=== PATIENT | male | born 1995 | race Caucasian/White ===

== ENCOUNTER 2019-02-28 12:27 | Emergency (ER) | payer OTHER ==
[2019-02-28 12:39] VITALS: BP 132/80
--- NOTE | 2019-02-28 12:57 | ER Document Report ---
ED Medical Screen (RME) - General Chief Complaint: Headache Stated Complaint: HEADACHE Time Seen by Provider: 02/28/19 12:51 Primary Care Provider: RODRIGUEZ DORAN MD [Primary Care Provider] - Follow up as needed Mode of Arrival: Ambulatory Information source: Patient Notes: 23-year-old male presented to ED for a severe headache. He states that started yesterday he coughed and immediately had a headache. He states that if he felt like he was going to pass out he was nauseated and felt like somebody punched him in the head. He states he coughed again today and the pain was much worse. He states he thought he was going to pass out again. Patient has a history of bronchitis anxiety depression IBS and gastritis. He states he has had a endoscopy. Smokes a half a pack a day denies alcohol or drugs. He is does not work at this time. Patient is alert and oriented respirations regular nonlabored speaking in full sentences. Patient has no acute neurological symptoms at this time except for the headache. I have greeted and performed a rapid initial assessment of this patient. A comprehensive ED assessment and evaluation of the patient, analysis of test results and completion of medical decision making process will be conducted by an additional ED providers. Dictation of this chart was performed using voice recognition software; therefore, there may be some unintended grammatical errors. TRAVEL OUTSIDE OF THE [place] IN LAST 30 DAYS: No - Related Data Allergies/Adverse Reactions: No Known Allergies Allergy (Verified 02/28/19 12:28) Past Medical History Psychiatric Medical History: Reports: Hx Depression - Immunizations Immunizations up to date: Yes Hx Diphtheria, Pertussis, Tetanus Vaccination: Yes Physical Exam - Vital signs Vitals: Temp Pulse Resp BP Pulse Ox 98.4 F 104 H 20 132/80 H 96 02/28/19 12:37 02/28/19 12:37 02/28/19 12:37 02/28/19 12:37 02/28/19 12:37 Course - Vital Signs Vital signs: Temp Pulse Resp BP Pulse Ox 98.4 F 104 H 20 132/80 H 96 02/28/19 12:37 02/28/19 12:37 02/28/19 12:37 02/28/19 12:37 02/28/19 12:37 Doctor's Discharge - Discharge Referrals: RODRIGUEZ DORAN MD [Primary Care Provider] - Follow up as needed
[2019-02-28 13:46] LABS: ABSOLUTE EOSINOPHILS # (AUTO) 0.2 10^3/uL (0.0-0.6); ABSOLUTE LYMPHOCYTES (AUTO) 1.9 10^3/uL (0.5-4.7); ABSOLUTE MONOCYTES (AUTO) 0.5 10^3/uL (0.1-1.4); ABSOLUTE NEUT (AUTO) 5.6 10^3/uL (1.7-8.2); BASOPHILS % (AUTO) 0.3 % (0-2); EOSINOPHILS % (AUTO) 1.9 % (0-6); HEMATOCRIT 48.3 % (37.9-51.0); HEMOGLOBIN 16.4 g/dL (13.5-17.0); LYMPHOCYTES % (AUTO) 23.5 % (13-45); MEAN CORPUSCULAR HEMOGLOBIN 29.8 pg (27.0-33.4); MEAN CORPUSCULAR VOLUME 88 fl (80-97); MONOCYTES % (AUTO) 6.6 % (3-13); PLATELET COUNT 293 10^3/uL (150-450); RED BLOOD COUNT 5.51 10^6/uL (4.35-5.55); SEGMENTED NEUTROPHILS % (AUTO) 67.7 % (42-78); TOTAL CELLS COUNTED % (AUTO) 100 %; WHITE BLOOD COUNT 8.2 10^3/uL (4.0-10.5)
[2019-02-28 13:54] LABS: APPEARANCE,URINE SLIGHTLY-CLOUDY; BILIRUBIN,URINE NEGATIVE (NEGATIVE); COLOR,URINE AMBER; GLUCOSE, URINE NEGATIVE (NEGATIVE); KETONES,URINE TRACE mg/dL (NEGATIVE); LEUKOCYTE ESTERASE,URINE NEGATIVE (NEGATIVE); NITRITE,URINE NEGATIVE (NEGATIVE); PROTEIN,URINE 100 mg/dL (NEGATIVE); URINE SPECIFIC GRAVITY 1.028; UROBILINOGEN,URINE NEGATIVE mg/dL (<2.0)
[2019-02-28 14:05] LABS: ALANINE AMINOTRANSFERASE 42 U/L (21-72); ALBUMIN 4.9 g/dL (3.5-5.0); ALKALINE PHOSPHATASE 71 U/L (38-126); ANION GAP 12 (5-19); ASPARTATE AMINO TRANSFERASE 30 U/L (17-59); BILIRUBIN,DIRECT 0.2 mg/dL (0.0-0.4); BILIRUBIN,TOTAL 0.9 mg/dL (0.2-1.3); BLOOD UREA NITROGEN 13 mg/dL (7-20); CALCIUM 10.2 mg/dL (8.4-10.2); CARBON DIOXIDE 24 mmol/L (22-30); CHLORIDE 106 mmol/L (98-107); GLUCOSE 92 mg/dL (75-110); POTASSIUM 4.2 mmol/L (3.6-5.0)
[2019-02-28 14:10] LABS: URINE AMPHETAMINES SCREEN NEGATIVE; URINE BARBITURATES SCREEN NEGATIVE; URINE BENZODIAZEPINES SCREEN NEGATIVE; URINE COCAINE SCREEN NEGATIVE; URINE MARIJUANA (THC) SCREEN UNCONFIRMED POSITIVE; URINE METHADONE SCREEN NEGATIVE; URINE PHENCYCLIDINE SCREEN NEGATIVE
--- NOTE | 2019-02-28 15:01 | RADIOLOGY REPORT (SQ) ---
EXAM DESCRIPTION: CT HEAD WITHOUT COMPLETED DATE/TIME: 02/28/2019 2:50 pm REASON FOR STUDY: Severe headache starting yesterday worse today COMPARISON: 08/14/2015 TECHNIQUE: Axial images acquired through the brain without intravenous contrast. Images reviewed wi th bone, brain and subdural windows. Additional sagittal and coronal reconstructions were generated. Images stored on PACS. All CT scanners at this facility use dose modulation, iterative reconstruction, and/or weight based d osing when appropriate to reduce radiation dose to as low as reasonably achievable (ALARA). [facility]: Dose Right [facility]: CareDose [facility]: Dose Right [facility]: Teradose 4D [facility]: Smart [employer] RADIATION DOSE: CT Rad equipment meets quality standard of care and radiation dose reduction techniq ues were employed. CTDIvol: 53.2 mGy. DLP: 991 mGy-cm. mGy. LIMITATIONS: None. FINDINGS: VENTRICLES: Normal size and contour. CEREBRUM: No masses. No hemorrhage. No midline shift. No evidence for acute infarction. Normal gra y/white matter differentiation. No areas of low density in the white matter. CEREBELLUM: No masses. No hemorrhage. No alteration of density. No evidence for acute infarction. EXTRAAXIAL SPACES: No fluid collections. No masses. ORBITS AND GLOBE: No intra- or extraconal masses. Normal contour of globe without masses. CALVARIUM: No fracture. PARANASAL SINUSES: No fluid or mucosal thickening. SOFT TISSUES: No mass or hematoma. OTHER: No other significant finding. IMPRESSION: No acute intracranial pathology. No noncontrast CT findings to explain headache. EVIDENCE OF ACUTE STROKE: NO. COMMENT: Quality ID # [id number]: Final reports with documentation of one or more dose reduction techniques (e.g., Automated exposure control, adjustment of the mA and/or kV according to patient size, use of iterative reconstruction technique) TECHNICAL DOCUMENTATION: JOB ID: [id number] [employer]- All Rights Reserved Reading location - IP/workstation name: [email or web address]
[2019-02-28] MEDS ORDERED: ACETAMINOPHEN 325 MG TABLET PO ONE (15:06)
== END 2019-02-28 17:20 | disposition left against medical advice (07) ==
LOC: ER 12:27
DX: R51 Headache (principal); R11.0 Nausea; R05 Cough; F17.200 Nicotine dependence, unspecified, uncomplicated; Z53.20 Procedure and treatment not carried out because of patient's decision for unspecified reasons
CPT/HCPCS: 36415; 70450; 80053; 80307; 81001; 85025; 99281

== ENCOUNTER 2019-03-31 22:24 | Emergency (ER) | payer OTHER ==
[2019-03-31 22:31] VITALS: BP 125/76
== END 2019-03-31 23:06 | disposition left against medical advice (07) ==
LOC: ER 22:24
DX: Z53.21 Procedure and treatment not carried out due to patient leaving prior to being seen by health care provider (principal)

== ENCOUNTER 2019-05-10 18:07 | Emergency (ER) | payer OTHER ==
--- NOTE | 2019-05-10 18:19 | ER Document Report ---
ED Medical Screen (RME) - General Chief Complaint: Penile Pain Stated Complaint: PENILE PAIN Time Seen by Provider: 05/10/19 18:13 Mode of Arrival: Ambulatory Information source: Patient Notes: 23-year-old male presented to ED for complaint of feeling strange intake in his belly. He states this happened he and his pain started about an hour ago he states it is frequent and now he is feeling like there is something going on with his body. Very pale at this time. He denies using any kind of substance before coming into the emergency room he states that his penis has shrunk in the last hours. He states he feels like it happens again. He states she smokes a pack a day does not drink or do any drugs. I have greeted and performed a rapid initial assessment of this patient. A comprehensive ED assessment and evaluation of the patient, analysis of test results and completion of medical decision making process will be conducted by an additional ED providers. TRAVEL OUTSIDE OF THE [place] IN LAST 30 DAYS: No - Related Data Allergies/Adverse Reactions: No Known Allergies Allergy (Verified 02/28/19 12:28) Past Medical History Renal/ Medical History: Denies: Hx Peritoneal Dialysis Psychiatric Medical History: Reports: Hx Depression - Immunizations Immunizations up to date: Yes Hx Diphtheria, Pertussis, Tetanus Vaccination: Yes Physical Exam - Vital signs Vitals: Temp Pulse Resp BP Pulse Ox 98.9 F 99 24 H 139/86 H 99 05/10/19 18:11 05/10/19 18:11 05/10/19 18:11 05/10/19 18:11 05/10/19 18:11 Course - Vital Signs Vital signs: Temp Pulse Resp BP Pulse Ox 98.9 F 99 24 H 139/86 H 99 05/10/19 18:11 05/10/19 18:11 05/10/19 18:11 05/10/19 18:11 05/10/19 18:11
[2019-05-10] MEDS ORDERED: NORMAL SALINE 1000 ML 1,000 ML IV ONE (18:20)
[2019-05-10] MEDS ORDERED: ONDANSETRON HCL INJ/PF 4 MG/2 ML SDV IV ONE (18:20)
[2019-05-10 18:55] LABS: ABSOLUTE EOSINOPHILS # (AUTO) 0.1 10^3/uL (0.0-0.6); ABSOLUTE LYMPHOCYTES (AUTO) 3.6 10^3/uL (0.5-4.7); ABSOLUTE MONOCYTES (AUTO) 0.8 10^3/uL (0.1-1.4); ABSOLUTE NEUT (AUTO) 8.9 10^3/uL (1.7-8.2); BASOPHILS % (AUTO) 0.2 % (0-2); EOSINOPHILS % (AUTO) 0.5 % (0-6); HEMATOCRIT 47.2 % (37.9-51.0); HEMOGLOBIN 16.1 g/dL (13.5-17.0); LYMPHOCYTES % (AUTO) 26.7 % (13-45); MEAN CORPUSCULAR HEMOGLOBIN 30.1 pg (27.0-33.4); MEAN CORPUSCULAR HGB CONC 34.2 g/dL (32.0-36.0); MEAN CORPUSCULAR VOLUME 88 fl (80-97); MONOCYTES % (AUTO) 6.1 % (3-13); PLATELET COUNT 332 10^3/uL (150-450); RED BLOOD COUNT 5.37 10^6/uL (4.35-5.55); RED CELL DISTRIBUTION WIDTH 12.6 % (11.5-14.0); SEGMENTED NEUTROPHILS % (AUTO) 66.5 % (42-78); TOTAL CELLS COUNTED % (AUTO) 100 %; WHITE BLOOD COUNT 13.4 10^3/uL (4.0-10.5)
[2019-05-10 19:10] LABS: ALBUMIN 5.1 g/dL (3.5-5.0); ALKALINE PHOSPHATASE 82 U/L (38-126); ANION GAP 15 (5-19); ASPARTATE AMINO TRANSFERASE 29 U/L (17-59); BILIRUBIN,DIRECT 0.2 mg/dL (0.0-0.4); BILIRUBIN,TOTAL 0.6 mg/dL (0.2-1.3); BLOOD UREA NITROGEN 15 mg/dL (7-20); CALCIUM 9.9 mg/dL (8.4-10.2); CARBON DIOXIDE 21 mmol/L (22-30); CHLORIDE 105 mmol/L (98-107); CREATINE KINASE 135 U/L (55-170); GLUCOSE 109 mg/dL (75-110); TOTAL PROTEIN 8.4 g/dL (6.3-8.2)
--- NOTE | 2019-05-10 20:00 | RADIOLOGY REPORT (SQ) ---
EXAM DESCRIPTION: U/S SCROTUM W/O DOPPLER COMPLETED DATE/TIME: 05/10/2019 7:46 pm REASON FOR STUDY: groin and penile pain COMPARISON: None. TECHNIQUE: Static and realtime ariza scale imaging of the scrotum and testes. Selected color Doppler and spectral images recorded to document blood flow. LIMITATIONS: None. FINDINGS: RIGHT: TESTICLE: Normal size 4.2 cm. Normal echotexture. Normal blood flow. No mass. EPIDIDYMIS: Normal, 11 mm. HYDROCELE OR VARICOCELE: There is a hydrocele on the right. HERNIA OR EXTRA-TESTICULAR MASS: No. OTHER: No other significant finding. LEFT: TESTICLE: Normal size 4.1 cm. Normal echotexture. Normal blood flow. No mass. EPIDIDYMIS: Prominent, measuring 26 mm. There is a 9 x 16 mm cyst in the epididymal head. HYDROCELE OR VARICOCELE: There is a hydrocele on the left. HERNIA OR EXTRA-TESTICULAR MASS: No. OTHER: Imaging in the area of the pain in the left lateral aspect of the penis shows no obvious findi ng. IMPRESSION: The left epididymis is prominent and there is an epididymal cyst. Bilateral hydroceles. No other significant findings. Correlate for epididymitis. TECHNICAL DOCUMENTATION: JOB ID: [id number] [employer]- All Rights Reserved Reading location - IP/workstation name: [email or web address]
--- NOTE | 2019-05-10 20:16 | ER Document Report ---
ED General - General Chief Complaint: Penile Pain Stated Complaint: PENILE PAIN Time Seen by Provider: 05/10/19 18:13 Mode of Arrival: Ambulatory TRAVEL OUTSIDE OF THE [place] IN LAST 30 DAYS: No - HPI Notes: This is a 23-year-old gentleman who presents today with a complaint of penile nerve pain with scrotal pain. Patient states he felt "funny inside. States it feels like his penis was drinking. He said he feels strange. He denies any nausea or vomiting. He denies any diarrhea or constipation. He denies any penile discharge. He denies any chest pain. He denies any fever or chills he denies any cardia pulmonary symptoms. Patient tells me he feels better now. - Related Data Allergies/Adverse Reactions: No Known Allergies Allergy (Verified 05/10/19 18:16) Past Medical History - General Information source: Patient - Social History Smoking Status: Current Every Day Smoker Chew tobacco use (# tins/day): No Frequency of alcohol use: None Drug Abuse: None Family History: Reviewed & Not Pertinent Patient has suicidal ideation: No Patient has homicidal ideation: No Renal/ Medical History: Denies: Hx Peritoneal Dialysis Psychiatric Medical History: Reports: Hx Depression - Immunizations Immunizations up to date: Yes Hx Diphtheria, Pertussis, Tetanus Vaccination: Yes Review of Systems - Review of Systems Cardiovascular: denies: Chest pain, Palpitations Genitourinary: denies: Burning, Dysuria, Frequency, Flank pain Male Genitourinary: See HPI, Testicular pain. denies: Erectile dysfunction, Penile discharge Neurological/Psychological: denies: Headaches -: Yes All other systems reviewed and negative Physical Exam - Vital signs Vitals: Temp Pulse Resp BP Pulse Ox 98.9 F 99 24 H 139/86 H 99 05/10/19 18:11 05/10/19 18:11 05/10/19 18:11 05/10/19 18:11 05/10/19 18:11 - General General appearance: Appears well, Alert - Respiratory Respiratory status: No respiratory distress Chest status: Nontender Breath sounds: Normal Chest palpation: Normal - Cardiovascular Rhythm: Regular Heart sounds: Normal auscultation Murmur: No - Abdominal Inspection: Normal Distension: No distension Bowel sounds: Normal Tenderness: Nontender Organomegaly: No organomegaly - Genitourinary Inspection: No: Blood at meatus Tenderness: Epididymis tender - Baseline left hemiscrotal tenderness on exam. There is pain elevation of the left testicle. Normal cremasteric reflex. - Extremities General upper extremity: Normal inspection, Nontender, Normal color, Normal ROM, Normal temperature General lower extremity: Normal inspection, Nontender, Normal color, Normal ROM. No: Frank's sign - Psychological Associated symptoms: Anxious - Patient appears anxious. Course - Re-evaluation Re-evalutation: 05/10/19 20:19 Differential diagnosis includes epididymitis versus orchitis versus hydrocele versus varicocele versus urethritis. Patient also appears to be anxious. Labs and imaging done prior to my evaluation reviewed. Ultrasound was suspicious for epididymitis. We will treat him for that. 05/10/19 22:02 Patient reevaluated. Patient is doing well. Labs and imaging reviewed and dis cussed with patient. Will cover him with Doxy. Rocephin and Zithromax given. - Vital Signs Vital signs: Temp Pulse Resp BP Pulse Ox 98.1 F 73 19 103/51 L 94 05/10/19 19:26 05/10/19 19:26 05/10/19 21:01 05/10/19 21:01 05/10/19 21:01 - Laboratory Result Diagrams: 05/10/19 18:42 05/10/19 18:42 Laboratory results interpreted by me: 05/10/19 05/10/19 05/10/19 18:42 18:42 20:40 WBC 13.4 H Absolute Neuts (auto) 8.9 H Carbon Dioxide 21 L Total Protein 8.4 H Albumin 5.1 H Urine Protein 30 H Urine Ketones 20 H Urine Urobilinogen 2.0 H Discharge - Discharge Clinical Impression: Epididymitis Condition: Good Disposition: HOME, SELF-CARE Instructions: Epididymitis ([facility]), Doxycycline ([facility]) Prescriptions: Doxycycline Monohydrate 100 mg PO BID #20 capsule Referrals: [facility] [NO LOCAL MD] - Follow up as needed
--- NOTE | 2019-05-10 20:39 | RADIOLOGY REPORT (SQ) ---
XR CHEST 1 VIEW CLINICAL STATEMENT: #1 SYNCOPE COMPARISON: 08/14/2015 FINDINGS: Cardiomediastinal silhouette is within normal limits. There is no focal lung consolidation or pleural effusion. No evidence of pulmonary edema or pneumothorax. IMPRESSION: No acute cardiopulmonary disease.
[2019-05-10 21:16] LABS: URINE AMPHETAMINES SCREEN NEGATIVE; URINE BARBITURATES SCREEN NEGATIVE; URINE BENZODIAZEPINES SCREEN NEGATIVE; URINE COCAINE SCREEN NEGATIVE; URINE MARIJUANA (THC) SCREEN UNCONFIRMED POSITIVE; URINE METHADONE SCREEN NEGATIVE; URINE PHENCYCLIDINE SCREEN NEGATIVE
[2019-05-10 21:17] LABS: APPEARANCE,URINE SLIGHTLY-CLOUDY; BILIRUBIN,URINE NEGATIVE (NEGATIVE); COLOR,URINE YELLOW; GLUCOSE, URINE NEGATIVE (NEGATIVE); KETONES,URINE 20 mg/dL (NEGATIVE); LEUKOCYTE ESTERASE,URINE NEGATIVE (NEGATIVE); NITRITE,URINE NEGATIVE (NEGATIVE); PROTEIN,URINE 30 mg/dL (NEGATIVE); URINE SPECIFIC GRAVITY 1.029
[2019-05-10] MEDS ORDERED: AZITHROMYCIN 250 MG TABLET PO ONE (21:28)
[2019-05-10] MEDS ORDERED: CEFTRIAXONE INJ 250 MG VIAL IM ONE (21:28)
[2019-05-10] MEDS ORDERED: LIDOCAINE 1% INJ-PF (10 MG/ML) 30 ML SDV ONE (21:31)
[2019-05-10] MEDS ORDERED: LIDOCAINE 1% INJ (10 MG/ML) 10 ML MDV INJ ONE (21:34)
--- NOTE | 2019-05-10 21:50 | EKG REPORT ---
SEVERITY:- BORDERLINE ECG - SINUS TACHYCARDIA PROBABLE LEFT ATRIAL ABNORMALITY BORDERLINE PROLONGED QT INTERVAL : Confirmed by: Allie Goodman MD 10-May-2019 21:48:46
[2019-05-10 22:05] VITALS: BP 97/50
[2019-05-10 23:16] LABS: CHLAM PCR NOT DETECTED (NOT DETECT)
== END 2019-05-10 22:12 | disposition home or self-care (01) ==
LOC: ER 18:07
DX: N45.1 Epididymitis (principal); N48.89 Other specified disorders of penis; F17.200 Nicotine dependence, unspecified, uncomplicated
CPT/HCPCS: 93005; 36415; 87086; 82553; 82550; 85025; 80053; 81001; 80307; 87491; 87591; 71045; 76870; 93010; J2405; J7030; J0696

== ENCOUNTER 2019-05-18 19:50 | Emergency (ER) | payer OTHER ==
[2019-05-18] MEDS ORDERED: ONDANSETRON HCL INJ/PF 4 MG/2 ML SDV IV ONE (20:06)
[2019-05-18] MEDS ORDERED: NORMAL SALINE 1000 ML 1,000 ML IV ONE (20:06)
--- NOTE | 2019-05-18 20:07 | ER Document Report ---
ED Medical Screen (RME) - General Chief Complaint: Vomiting Stated Complaint: ABDOMINAL PAIN TRAVEL OUTSIDE OF THE [place] IN LAST 30 DAYS: No - HPI Notes: 05/18/19 20:06 Patient is a 24-year-old male with a history of GERD with recent endoscopy who presents complaining of nausea and vomiting as well as epigastric abdominal pain and mild lower abdominal pain that is been present for a couple hours. Denies drug allergies. No trouble with his bowel movements. No fever. I have treated and performed a rapid initial assessment of this patient. A comprehensive ED assessment and evaluation of the patient, analysis of test results and completion of medical decision making process will be conducted by additional ED providers. PHYSICAL EXAMINATION: GENERAL: Well-appearing, well-nourished and in no acute distress. Abdomen: + Mild tenderness of the epigastrium and minimally to the lower abdomen. Limited exam in triage. - Related Data Allergies/Adverse Reactions: No Known Allergies Allergy (Verified 05/10/19 18:16) Past Medical History - Social History Frequency of alcohol use: quit 8 mnths ago Renal/ Medical History: Denies: Hx Peritoneal Dialysis Psychiatric Medical History: Reports: Hx Depression - Immunizations Immunizations up to date: Yes Hx Diphtheria, Pertussis, Tetanus Vaccination: Yes Physical Exam - Vital signs Vitals: Temp Pulse Resp BP Pulse Ox 98.1 F 93 16 126/72 H 98 05/18/19 19:58 05/18/19 19:58 05/18/19 19:58 05/18/19 19:58 05/18/19 19:58 Course - Vital Signs Vital signs: Temp Pulse Resp BP Pulse Ox 98.1 F 93 16 126/72 H 98 05/18/19 19:58 05/18/19 19:58 05/18/19 19:58 05/18/19 19:58 05/18/19 19:58
[2019-05-18 20:36] LABS: ABSOLUTE BASOPHILS # (AUTO) 0.1 10^3/uL (0.0-0.2); ABSOLUTE EOSINOPHILS # (AUTO) 0.1 10^3/uL (0.0-0.6); ABSOLUTE LYMPHOCYTES (AUTO) 2.3 10^3/uL (0.5-4.7); ABSOLUTE MONOCYTES (AUTO) 0.6 10^3/uL (0.1-1.4); ABSOLUTE NEUT (AUTO) 7.7 10^3/uL (1.7-8.2); BASOPHILS % (AUTO) 0.6 % (0-2); EOSINOPHILS % (AUTO) 0.7 % (0-6); HEMATOCRIT 48.9 % (37.9-51.0); HEMOGLOBIN 16.7 g/dL (13.5-17.0); LYMPHOCYTES % (AUTO) 21.4 % (13-45); MEAN CORPUSCULAR HEMOGLOBIN 30.2 pg (27.0-33.4); MEAN CORPUSCULAR HGB CONC 34.2 g/dL (32.0-36.0); MEAN CORPUSCULAR VOLUME 88 fl (80-97); MONOCYTES % (AUTO) 5.4 % (3-13); PLATELET COUNT 304 10^3/uL (150-450); RED BLOOD COUNT 5.53 10^6/uL (4.35-5.55); RED CELL DISTRIBUTION WIDTH 12.6 % (11.5-14.0); SEGMENTED NEUTROPHILS % (AUTO) 71.9 % (42-78); TOTAL CELLS COUNTED % (AUTO) 100 %; WHITE BLOOD COUNT 10.7 10^3/uL (4.0-10.5)
[2019-05-18 20:41] LABS: APPEARANCE,URINE CLEAR; BILIRUBIN,URINE NEGATIVE (NEGATIVE); COLOR,URINE YELLOW; GLUCOSE, URINE NEGATIVE (NEGATIVE); KETONES,URINE NEGATIVE (NEGATIVE); LEUKOCYTE ESTERASE,URINE NEGATIVE (NEGATIVE); NITRITE,URINE NEGATIVE (NEGATIVE); PROTEIN,URINE NEGATIVE (NEGATIVE); UROBILINOGEN,URINE NEGATIVE mg/dL (<2.0)
[2019-05-18 20:58] LABS: ALBUMIN 5.1 g/dL (3.5-5.0); ALKALINE PHOSPHATASE 75 U/L (38-126); ANION GAP 11 (5-19); ASPARTATE AMINO TRANSFERASE 27 U/L (17-59); BILIRUBIN,DIRECT 0.2 mg/dL (0.0-0.4); BILIRUBIN,TOTAL 0.5 mg/dL (0.2-1.3); BLOOD UREA NITROGEN 14 mg/dL (7-20); CALCIUM 10.2 mg/dL (8.4-10.2); CARBON DIOXIDE 25 mmol/L (22-30); CHLORIDE 103 mmol/L (98-107); GLUCOSE 103 mg/dL (75-110); POTASSIUM 4.3 mmol/L (3.6-5.0); TOTAL PROTEIN 8.3 g/dL (6.3-8.2)
[2019-05-18] MEDS ORDERED: FAMOTIDINE 20 MG TABLET PO ONE (22:08)
[2019-05-18] MEDS ORDERED: PROMETHAZINE HCL 25 MG TABLET PO ONE (22:08)
[2019-05-18] MEDS ORDERED: SUCRALFATE 1 GM TABLET PO ONE (22:08)
--- NOTE | 2019-05-18 22:30 | ER Document Report ---
ED GI/ - General Chief Complaint: Vomiting Stated Complaint: ABDOMINAL PAIN Time Seen by Provider: 05/18/19 21:53 Notes: Patient is a 24-year-old male that comes to the emergency department for chief complaint of vomiting, he vomited about 6-7 times a day, nonbloody, had a normal vomiting earlier today. He states he feels like he is burning in his upper abdomen. He states every time he gets up in the morning he feels nauseated and sometimes he vomits. He states that he had an endoscopy several weeks ago and he was diagnosed with gastritis but negative for everything else including H. pylori. He used to drink alcohol heavily, he stopped drinking alcohol, he states he does continue to smoke. He denies any current daily medications. He denies any recreational drugs. TRAVEL OUTSIDE OF THE [place] IN LAST 30 DAYS: No - Related Data Allergies/Adverse Reactions: No Known Allergies Allergy (Verified 05/18/19 20:44) Past Medical History - General Information source: Patient - Social History Smoking Status: Current Every Day Smoker Frequency of alcohol use: quit 8 mnths ago Lives with: Family Family History: Reviewed & Not Pertinent Patient has suicidal ideation: No Patient has homicidal ideation: No Renal/ Medical History: Denies: Hx Peritoneal Dialysis GI Medical History: Reports: Hx Gastroesophageal Reflux Disease Psychiatric Medical History: Reports: Hx Depression - Immunizations Immunizations up to date: Yes Hx Diphtheria, Pertussis, Tetanus Vaccination: Yes Review of Systems - Review of Systems Constitutional: No symptoms reported EENT: No symptoms reported Cardiovascular: No symptoms reported Respiratory: No symptoms reported Gastrointestinal: See HPI Genitourinary: No symptoms reported Male Genitourinary: No symptoms reported Musculoskeletal: No symptoms reported Skin: No symptoms reported Hematologic/Lymphatic: No symptoms reported Neurological/Psychological: No symptoms reported Physical Exam - Vital signs Vitals: Temp Pulse Resp BP Pulse Ox 98.1 F 93 16 126/72 H 98 05/18/19 19:58 05/18/19 19:58 05/18/19 19:58 05/18/19 19:58 05/18/19 19:58 - Notes Notes: GENERAL: Alert, interacts well. No acute distress. HEAD: Normocephalic, atraumatic. EYES: Pupils equal, round, and reactive to light. Extraocular movements intact. ENT: Oral mucosa moist, tongue midline. Oropharynx unremarkable. Airway patent. NECK: Full range of motion. Supple. Trachea midline. LUNGS: Clear to auscultation bilaterally, no wheezes, rales, or rhonchi. No respiratory distress. HEART: Regular rate and rhythm. No murmur ABDOMEN: Mild epigastric and left upper quadrant tenderness. No rectal quadrant or lower abdominal tenderness noted. Non-distended. Bowel sounds present in all 4 quadrants. GENITOURINARY: Deferred EXTREMITIES: Moves all 4 extremities spontaneously. No edema, normal radial and dorsalis pedis pulses bilaterally. No cyanosis. BACK: no cervical, thoracic, lumbar midline tenderness. No saddle anesthesia, normal distal neurovascular exam. Moves all extremities in full range of motion. NEUROLOGICAL: Alert and oriented x3. Normal speech. Cranial nerves II through XII grossly intact. PSYCH: Normal affect, normal mood. SKIN: Warm, dry, normal turgor. No rashes or lesions noted. Course - Re-evaluation Re-evalutation: Patient has some minimal epigastric and left upper quadrant tenderness on my exam. He is alert and well-appearing. He has no right upper quadrant tenderness. CBC, chemistry, lipase, urinalysis unremarkable. I did discuss possible ultrasound, however patient does have very specific symptoms suggesting gastritis/esophagitis along with a history of this. He is not currently being treated for this as well. Ultrasound was deferred after discussion. Patient will be placed on treatment for gastritis, discussed Lysol modifications, discussed follow-up, discussed strict return precautions. Patient states appreciation and agreement. He is tolerating p.o. without difficulty. Stable at time of discharge. - Vital Signs Vital signs: Temp Pulse Resp BP Pulse Ox 98.5 F 63 18 116/59 L 97 05/18/19 22:57 05/18/19 22:57 05/18/19 22:57 05/18/19 22:57 05/18/19 22:57 - Laboratory Result Diagrams: 05/18/19 20:15 05/18/19 20:15 Laboratory results interpreted by me: 05/18/19 05/18/19 20:15 20:15 WBC 10.7 H Total Protein 8.3 H Albumin 5.1 H Discharge - Discharge Clinical Impression: Upper abdominal pain Vomiting Qualifiers: Vomiting type: unspecified Vomiting Intractability: non-intractable Nausea presence: with nausea Qualified Code(s): R11.2 - Nausea with vomiting, unspec ified Disposition: HOME, SELF-CARE Additional Instructions: Your symptoms and examination indicate gastritis/esophagitis (inflammation of your upper gastrointestinal tract). Take Phenergan for nausea, take Carafate and Prilosec as prescribed to help treat this, you can take additional Zantac, Tums, Maalox, etc. if needed for your symptoms. You can take Tylenol for pain. Avoid NSAIDs, alcohol, smoking, caffeine, spicy food. Start with clear fluids, progress to bland diet. Follow-up with primary care for additional evaluation and treatment. Return if you worsen including uncontrolled vomiting, vomiting blood, black stools, severe pain, fever of 100.4 or greater, or any other concerning or worsening symptoms. Prescriptions: Sucralfate [Carafate 1 gm Tablet] 1 gm PO QID #20 tablet Omeprazole 40 mg PO DAILY #30 capsule. Ondansetron [Zofran Odt 4 mg Tablet] 1 - 2 tab PO Q4H PRN #15 tab.rapdis PRN Reason: For Nausea/Vomiting
[2019-05-18 23:18] VITALS: BP 116/59
== END 2019-05-18 23:18 | disposition home or self-care (01) ==
LOC: ER 19:50
DX: R10.10 Upper abdominal pain, unspecified (principal); R11.2 Nausea with vomiting, unspecified; F17.200 Nicotine dependence, unspecified, uncomplicated
CPT/HCPCS: 36415; 83690; 85025; 80053; 81001; J2405; J7030; 96361; 96374; 99284

== ENCOUNTER 2019-06-22 14:24 | Emergency (ER) | payer OTHER ==
[2019-06-22 14:39] VITALS: BP 131/72
== END 2019-06-22 16:11 | disposition left against medical advice (07) ==
LOC: ER 14:24
DX: Z53.21 Procedure and treatment not carried out due to patient leaving prior to being seen by health care provider (principal)

== ENCOUNTER 2019-06-27 20:13 | Emergency (ER) | payer OTHER ==
[2019-06-27] MEDS ORDERED: KETOROLAC TROMETHAMINE INJ/PF 30 MG/1 ML SDV IV ONE (22:16)
[2019-06-27] MEDS ORDERED: ONDANSETRON HCL INJ/PF 4 MG/2 ML SDV IV ONE (22:16)
--- NOTE | 2019-06-27 22:17 | ER Document Report ---
ED Medical Screen (RME) - General Chief Complaint: Groin Pain Stated Complaint: GROIN PAIN Time Seen by Provider: 06/27/19 22:16 Mode of Arrival: Medic Information source: Patient Notes: Patient presents complaining of scrotal pain that started yesterday. Patient states that pain radiates into the lower abdomen. Patient has had nausea and vomiting. No fever. Patient is uncertain if he has any urinary symptoms as he is distracted by the scrotal tenderness. Patient denies any change in appearance of the scrotum. I have greeted and performed a rapid initial assessment of this patient. A comprehensive ED assessment and evaluation of the patient, analysis of test results and completion of the medical decision making process will be conducted by additional ED providers. TRAVEL OUTSIDE OF THE [place] IN LAST 30 DAYS: No - Related Data Allergies/Adverse Reactions: No Known Allergies Allergy (Verified 06/27/19 21:43) Home Medications: omeprazole Past Medical History - Social History Chew tobacco use (# tins/day): No Frequency of alcohol use: None Drug Abuse: None Renal/ Medical History: Denies: Hx Peritoneal Dialysis GI Medical History: Reports: Hx Gastroesophageal Reflux Disease Psychiatric Medical History: Reports: Hx Depression - Immunizations Immunizations up to date: Yes Hx Diphtheria, Pertussis, Tetanus Vaccination: Yes Physical Exam - General General appearance: Appears well, Alert Notes: Lower pelvic tenderness
[2019-06-27 23:22] LABS: APPEARANCE,URINE CLOUDY; BILIRUBIN,URINE NEGATIVE (NEGATIVE); COLOR,URINE YELLOW; GLUCOSE, URINE NEGATIVE (NEGATIVE); KETONES,URINE NEGATIVE (NEGATIVE); PROTEIN,URINE NEGATIVE (NEGATIVE); URINE SPECIFIC GRAVITY 1.019; UROBILINOGEN,URINE NEGATIVE mg/dL (<2.0)
[2019-06-27 23:40] LABS: ABSOLUTE EOSINOPHILS # (AUTO) 0.1 10^3/uL (0.0-0.6); ABSOLUTE LYMPHOCYTES (AUTO) 2.8 10^3/uL (0.5-4.7); ABSOLUTE MONOCYTES (AUTO) 0.7 10^3/uL (0.1-1.4); BASOPHILS % (AUTO) 0.4 % (0-2); EOSINOPHILS % (AUTO) 0.4 % (0-6); LYMPHOCYTES % (AUTO) 22.2 % (13-45); MEAN CORPUSCULAR HEMOGLOBIN 29.9 pg (27.0-33.4); MEAN CORPUSCULAR VOLUME 88 fl (80-97); MONOCYTES % (AUTO) 5.7 % (3-13); PLATELET COUNT 296 10^3/uL (150-450); RED BLOOD COUNT 5.34 10^6/uL (4.35-5.55); RED CELL DISTRIBUTION WIDTH 12.8 % (11.5-14.0); SEGMENTED NEUTROPHILS % (AUTO) 71.3 % (42-78); TOTAL CELLS COUNTED % (AUTO) 100 %; WHITE BLOOD COUNT 12.7 10^3/uL (4.0-10.5)
[2019-06-28] LABS: ALKALINE PHOSPHATASE 63 U/L (38-126); ANION GAP 12 (5-19); ASPARTATE AMINO TRANSFERASE 40 U/L (17-59); BILIRUBIN,DIRECT 0.2 mg/dL (0.0-0.4); BILIRUBIN,TOTAL 0.6 mg/dL (0.2-1.3); BLOOD UREA NITROGEN 12 mg/dL (7-20); CALCIUM 10.3 mg/dL (8.4-10.2); CARBON DIOXIDE 24 mmol/L (22-30); CHLORIDE 108 mmol/L (98-107); GLUCOSE 97 mg/dL (75-110); POTASSIUM 4.8 mmol/L (3.6-5.0)
[2019-06-28 00:45] LABS: CHLAM PCR NOT DETECTED (NOT DETECT)
--- NOTE | 2019-06-28 00:46 | RADIOLOGY REPORT (SQ) ---
EXAM DESCRIPTION: [facility]: US SCROTUM CLINICAL HISTORY: 24 years Male; scrotal pain TECHNIQUE: Ruth-scale, color, and spectral Doppler images were obtained of the testes and scrotum. COMPARISON: 05/10/2019 FINDINGS: Right testicle: 4.4 x 3 x 2.4 cm. Testicular echogenicity is normal with no focal lesion. Testicular vascular flow is normal. Right epididymis: 1.4 x 1.1 x 0.8 cm. No hyperemia on color Doppler. Small hydrocele is unchanged. Left testicle: 4.6 x 2.6 x 2.3 cm. Testicular echogenicity is normal with no focal lesion. Testicular vascular flow is normal. Left epididymis: 1.8 x 1.1 x 0.6 cm. No hyperemia on Doppler. Small hydrocele is again noted. IMPRESSION: 1. No testicular mass or torsion 2. Unchanged bilateral hydroceles 3. Right epididymis is slightly larger, although there is no hyperemia. This could be an early epididymitis.
[2019-06-28] MEDS ORDERED: CIPROFLOXACIN HCL 500 MG TABLET PO ONE (00:48)
[2019-06-28] MEDS ORDERED: HYDROCODONE/ACETAMINOPHEN 5-325 MG (6 TAB/ER DISP) PO PRN (00:52)
--- NOTE | 2019-06-28 00:53 | ER Document Report ---
Entered by ADIN CÁRDENAS SCRIBE 06/28/19 0031 Acting as scribe for:VICKI JOSEPH DO ED GI/ - General Chief Complaint: Groin Pain Stated Complaint: GROIN PAIN Time Seen by Provider: 06/27/19 22:16 Mode of Arrival: Ambulatory Notes: Patient is a 24-year-old male who comes in complaining of nonspecific groin pain with possible radiation to his pelvis. He is a difficult historian. States that he is not sexually active. Hearing benign. Blood work benign. Ultrasound with possible epididymitis. Patient has had similar presentation before. Odd affect. TRAVEL OUTSIDE OF THE [place] IN LAST 30 DAYS: No - Related Data Allergies/Adverse Reactions: No Known Allergies Allergy (Verified 06/27/19 21:43) Home Medications: omeprazole Past Medical History - General Information source: Patient - Social History Smoking Status: Current Every Day Smoker Chew tobacco use (# tins/day): No Frequency of alcohol use: None Drug Abuse: None Family History: Reviewed & Not Pertinent Patient has suicidal ideation: No Patient has homicidal ideation: No - Medical History Medical History: Negative Renal/ Medical History: Denies: Hx Peritoneal Dialysis GI Medical History: Reports: Hx Gastroesophageal Reflux Disease Psychiatric Medical History: Reports: Hx Depression - Immunizations Immunizations up to date: Yes Hx Diphtheria, Pertussis, Tetanus Vaccination: Yes Review of Systems - Review of Systems Constitutional: No symptoms reported EENT: No symptoms reported Cardiovascular: No symptoms reported Respiratory: No symptoms reported Gastrointestinal: No symptoms reported Genitourinary: See HPI Male Genitourinary: See HPI Musculoskeletal: No symptoms reported Skin: No symptoms reported Hematologic/Lymphatic: No symptoms reported Neurological/Psychological: No symptoms reported Physical Exam - Vital signs Interpretation: Normal - General General appearance: Appears well, Alert - HEENT Head: Normocephalic, Atraumatic Eyes: Normal Pupils: PERRL - Respiratory Respiratory status: No respiratory distress Chest status: Nontender Breath sounds: Normal Chest palpation: Normal - Cardiovascular Rhythm: Regular Heart sounds: Normal auscultation Murmur: No - Abdominal Inspection: Normal Distension: No distension Bowel sounds: Normal Tenderness: Nontender Organomegaly: No organomegaly - Genitourinary Inspection: Normal Tenderness: Testicle tender. No: Lesions - R>L Cremasteric reflex: Normal Scrotum: No: Swelling, Redness, Hot to touch - Back Back: Normal, Nontender - Extremities General upper extremity: Normal inspection, Nontender, Normal color, Normal ROM, Normal temperature General lower extremity: Normal inspection, Nontender, Normal color, Normal ROM, Normal temperature, Normal weight bearing. No: Frank's sign - Neurological Neuro grossly intact: Yes Cognition: Normal Orientation: AAOx4 [place] Coma Scale Eye Opening: Spontaneous [place] Coma Scale Verbal: Oriented [place] Coma Scale Motor: Obeys Commands [place] Coma Scale Total: 15 Speech: Normal Motor strength normal: LUE, RUE, LLE, RLE Sensory: Normal - Psychological Associated symptoms: Normal affect, Normal mood - Skin Skin Temperature: Warm Skin Moisture: Dry Skin Color: Normal Course - Re-evaluation Re-evalutation: 06/28/19 00:51 No acute findings on blood work or urine. Ultrasound possible epididymitis. Gonorrhea and Chlamydia negative. Patient will be discharged home with Cipro Return if further concerns worsening symptoms. Stable for discharge. - Laboratory Result Diagrams: 06/27/19 23:30 06/27/19 23:30 Laboratory results interpreted by me: 06/27/19 06/27/19 23:30 23:30 WBC 12.7 H Absolute Neuts (auto) 9.0 H Chloride 108 H Calcium 10.3 H - Diagnostic Test Radiology reviewed: Reports reviewed Discharge - Discharge Clinical Impression: Scrotal pain Condition: Stable Disposition: HOME, SELF-CARE Instructions: Epididymitis ([facility]) Prescriptions: Ciprofloxacin HCl [Cipro 500 mg Tablet] 500 mg PO BID #20 tablet I personally performed the services described in the documentation, reviewed and edited the documentation which was dictated to the scribe in my presence, and it accurately records my words and actions.
[2019-06-28 01:33] VITALS: BP 129/84
== END 2019-06-28 01:38 | disposition home or self-care (01) ==
LOC: ER 20:13
DX: N50.82 Scrotal pain (principal); R10.30 Lower abdominal pain, unspecified; F17.200 Nicotine dependence, unspecified, uncomplicated
CPT/HCPCS: 99284; 96374; 96375; 36415; 85025; 80053; 81001; 87491; 87591; 76870; 93976; J1885; J2405

== ENCOUNTER 2019-07-05 20:38 | Emergency (ER) | payer OTHER ==
[2019-07-05] MEDS ORDERED: OXYCODONE-ACETAMINOPHEN 5-325 MG TABLET PO ONE (20:46)
--- NOTE | 2019-07-05 20:49 | ER Document Report ---
ED Medical Screen (RME) - General Chief Complaint: Abscess Stated Complaint: ABSCESS Time Seen by Provider: 07/05/19 20:44 Notes: Patient is a 24-year-old male presents to the emergency department with a potential rectal abscess. Patient voices he has does have a history of abscesses and is unsure of when the redness and swelling started. Patient's denying any fevers. GENERAL: Alert, interacts well. No acute distress. SKIN: Warm, dry, normal turgor. Unable to fully view rectum patient is fully closed and in triage. I have greeted and performed a rapid initial assessment of this patient. A comprehensive ED assessment and evaluation of the patient, analysis of test results and completion of the medical decision making process will be conducted by additional ED providers. I have specifically instructed the patient or family members with the patient to immediately return to any nursing staff should anything change in the patient's condition or with their chief complaint. This medical record was dictated with voice recognizing software. There may be grammatical, syntax errors that are unintended. TRAVEL OUTSIDE OF THE [place] IN LAST 30 DAYS: No - Related Data Allergies/Adverse Reactions: No Known Allergies Allergy (Verified 07/05/19 20:43) Home Medications: Cipro daily (has 2-3 days left) Past Medical History - Social History Frequency of alcohol use: None Drug Abuse: None Renal/ Medical History: Denies: Hx Peritoneal Dialysis GI Medical History: Reports: Hx Gastroesophageal Reflux Disease Psychiatric Medical History: Reports: Hx Depression - Immunizations Immunizations up to date: Yes Hx Diphtheria, Pertussis, Tetanus Vaccination: Yes Physical Exam - Vital signs Vitals: Temp Pulse BP Pulse Ox 99.5 F 91 139/71 H 97 07/05/19 20:42 07/05/19 20:42 07/05/19 20:42 07/05/19 20:42 Course - Vital Signs Vital signs: Temp Pulse Resp BP Pulse Ox 99.5 F 91 139/71 H 97 07/05/19 20:42 07/05/19 20:42 07/05/19 20:42 07/05/19 20:42
--- NOTE | 2019-07-05 22:32 | ER Document Report ---
ED Skin Rash/Insect Bite/Abscs - General Chief Complaint: Abscess Stated Complaint: ABSCESS Time Seen by Provider: 07/05/19 20:44 Notes: Patient is a 24-year-old male who presents emergency department with a chief complaint of rectal pain. Patient reports that he did notice some drainage from the rectal area 3 days ago. Patient reports this was a mixture of blood and pus. Patient reports since then he has had no drainage but does report significant tenderness, redness to the area. Patient denies a history of abscess or MRSA. Patient denies history of diabetes. TRAVEL OUTSIDE OF THE [place] IN LAST 30 DAYS: No - Related Data Allergies/Adverse Reactions: No Known Allergies Allergy (Verified 07/05/19 20:43) Home Medications: Cipro daily (has 2-3 days left) Past Medical History - General Information source: Patient - Social History Smoking Status: Current Every Day Smoker Frequency of alcohol use: None Drug Abuse: None Lives with: Family Family History: Reviewed & Not Pertinent Patient has suicidal ideation: No Patient has homicidal ideation: No - Past Medical History Cardiac Medical History: Reports: None Pulmonary Medical History: Reports: None EENT Medical History: Reports: None Neurological Medical History: Reports: None Endocrine Medical History: Reports: None Renal/ Medical History: Reports: None. Denies: Hx Peritoneal Dialysis Malignancy Medical History: Reports None GI Medical History: Reports: Hx Gastroesophageal Reflux Disease Musculoskeletal Medical History: Reports None Skin Medical History: Reports None Psychiatric Medical History: Reports: Hx Depression Traumatic Medical History: Reports: None Infectious Medical History: Reports: None Surgical Hx: Negative - Immunizations Immunizations up to date: Yes Hx Diphtheria, Pertussis, Tetanus Vaccination: Yes Review of Systems - Review of Systems Constitutional: No symptoms reported EENT: No symptoms reported Cardiovascular: No symptoms reported Respiratory: No symptoms reported Gastrointestinal: See HPI Genitourinary: No symptoms reported Male Genitourinary: No symptoms reported Musculoskeletal: No symptoms reported Skin: No symptoms reported Hematologic/Lymphatic: No symptoms reported Neurological/Psychological: No symptoms reported Physical Exam - Vital signs Vitals: Temp Pulse BP Pulse Ox 99.5 F 91 139/71 H 97 07/05/19 20:42 07/05/19 20:42 07/05/19 20:42 07/05/19 20:42 - Notes Notes: GENERAL: Well-appearing, well-nourished and in no acute distress. HEAD: Atraumatic, normocephalic. EYES: Pupils equal round and reactive to light, extraocular movements intact, sclera anicteric, conjunctiva are normal. ENT: Nares patent, oropharynx clear without exudates. Moist mucous membranes. NECK: Normal range of motion, supple without lymphadenopathy or JVD. LUNGS: Breath sounds clear to auscultation bilaterally and equal. No wheezes rales or rhonchi. HEART: Regular rate and rhythm without murmurs, rubs or gallops. ABDOMEN: Soft, nontender, normoactive bowel sounds. No guarding, no rebound. No masses appreciated. BACK: No cervical, thoracic, lumbar midline tenderness. No saddle anesthesia, normal distal neurovascular exam. GENITOURINARY: Deferred. EXTREMITIES: Normal range of motion, no pitting or edema. No clubbing or cyanosis. NEUROLOGICAL: Cranial nerves II through XII grossly intact. Normal speech, normal gait. PSYCH: Normal mood, normal affect. SKIN: Warm, Dry, normal turgor, 4x5cm area of erythema noted within the lower buttocks on the right side. No drainage. Fluctuant and tender to touch. Course - Re-evaluation Re-evalutation: 07/06/19 00:[address] Mckoy to the bedside for patient evaluation. He does believe that this can be performed in the emergency department does not require a surgical consult as it is not extremely close to the anus. After the procedure I did explain to the patient that the wound will continue to drain over the next few days but he does need to come back for a recheck to have the packing removed and the area evaluated. Did give the patient strict return precautions in the meantime. We will place the patient on oral antibiotics and give him pain medication. Patient to use warm compresses. - Vital Signs Vital signs: Temp Pulse Resp BP Pulse Ox 99.5 F 91 139/71 H 97 07/05/19 20:42 07/05/19 20:42 07/05/19 20:42 07/05/19 20:42 Procedures - Incision and Drainage Right Lower Buttock Time completed: 23:45 Type: Simple Anesthetic type: 2% Lidocaine mL's of anesthetic: 8 Blade size: 11 I&D procedure: Shurclens applied, Iodoform packing placed Incision Method: Incision made by scalpel Notes: 07/06/19 00:09 1 cm incision made in the middle of the abscess. There was a large amount of bloody purulent drainage. The wound was irrigated with saline and explored to remove any additional pockets of infection. The wound was packed with iodoform. Discharge - Discharge Clinical Impression: Abscess Condition: Stable Disposition: HOME, SELF-CARE Additional Instructions: Today you are seen in the emergency department for an abscess. The abscess did require a numbing agent to be sized. I have packed this to keep the wound open so it will drain. You do need to return to the emergency department in 2 days for a wound recheck and to have the packing removed. You will be placed on oral antibiotics. Complete the oral antibiotics as prescribed. Please use warm compresses to the site to aid in drainage. Please return to the emergency department sooner if you develop a fever, severe pain that is not controlled, worsening swelling or redness. We did attempt to have a bowel movement this can be significantly painful due to the location of the abscess. You may use a stool softener such as Colace 100 mg daily. You can buy this [id number]. Please continue to stay hydrated and push fluids. Eat foods that are high in fiber. *You have been given a prescription for [place] which is a narcotic. Do not drive or operate heavy machinery while on this medication. You can also incorporate ibuprofen. ABSCESS: You have an abscess (boil). This a pus-forming infection, usually due to staph. Some boils may be left to drain on their own, but most require lancing. From the time the tender lump first appears, it may be three or four days before the abscess is ready to kamran. Local heat and rest help at this stage of treatment. An antibiotic may prevent spread of the infection. Once the abscess is opened, packing may be placed into it. This is done so pus is not sealed inside by premature closure of the cavity. The packing will be removed at your follow-up visit or you may be advised to remove it yourself at home. Sometimes this packing must be replaced a few times during healing. The wound will heal with surprisingly little scar. Depending on the size and location of an abscess, healing can take one to four weeks. You may shower and wash the area around the incision site two or three times a day. Antibiotics may be prescribed, but are usually not necessary after an abscess has been drained. If you develop fever, chills, worsening pain, or increasing swelling in the area, call the doctor or return immediately. POST INCISION AND DRAINAGE: You have had an incision made to allow drainage of an abscess. The incision must remain open so that pus and debris can drain from the wound. If the abscess cavity is large, packing is placed. This keeps the tissues from collapsing and trapping pus inside, while the body shrinks the cavity. The packing may need to be replaced every day or two. The physician will instruct you on the packing. Keep a bulky dressing over the area. Replace it if it becomes saturated with blood or pus. Do not disturb the packing (if present). You may shower and cleanse the area with gentle soap and warm water two or three times a day. Local warmth may be soothing, and may promote faster healing. Return if you develop high fever or chills, or if you note spreading redness, increasing swelling, or increasing tenderness. ORAL NARCOTIC MEDICATION: You have been given a prescription for pain control. This medication is a narcotic. It's best taken with food, as nausea can result if taken on an empty stomach. Don't operate machinery or drive within six hours of taking this medication. Do not combine this medicine with alcohol, or with any medication which can cause sedation (such as cold tablets or sleeping pills) unless you get permission from the physician. Narcotics tend to cause constipation. If possible, drink plenty of fluids and eat a diet high in fiber and fruits. TRIMETHOPRIM-SULFA: You have been given a prescription for trimethoprim-sulfa (TMS, Septra, Bactrim). This is a combination antibiotic of the sulfa class, often used for urinary tract infections, middle ear infections, bronchitis, shigella intestinal infection, and Pneumocystis pneumonia. TMS is usually well-tolerated. Occasional side effects include nausea and decreased appetite. Septra is not recommended for infants less than two months of age. Do not take this medication if you have experienced severe side effects or allergy to sulfa medicine. You should stop this medicine at once and contact your physician if you develop any rash, joint pain, shortness of breath, bruising, or jaundice (yellow color in the skin), or if you develop any other new or unusual symptoms. FOLLOW-UP CARE: Most simple abscesses will not require a follow up visit. If you had packing placed in the abscess, remove it as instructed by the physician. If you have been referred to a physician for follow-up care, call the physicians office for an appointment as you were instructed or within the next two days. If you experience worsening or a significant change in your symptoms, return to the Emergency Department at any time for re-evaluation. Prescriptions: Sulfamethoxazole/Trimethoprim [Bactrim Ds Tablet] 1 each PO BID 7 Days #14 tablet Forms: Return to Work
[2019-07-05] MEDS ORDERED: LIDOCAINE 2% INJ (20 MG/ML) 20 ML MDV INJ ONE (22:57)
[2019-07-05] MEDS ORDERED: HYDROCODONE/ACETAMINOPHEN 5-325 MG (6 TAB/ER DISP) PO PRN (22:59)
[2019-07-05] MEDS ORDERED: SULFAMETHOXAZOLE/TRIMETHOPRIM 800-160 MG TABLET PO ONE (22:59)
[2019-07-06] MEDS ORDERED: SULFAMETHOXAZOLE/TRIMETHOPRIM 800-160 MG TABLET PO ONE (01:01)
[2019-07-06 01:20] VITALS: BP 135/66
== END 2019-07-06 01:17 | disposition home or self-care (01) ==
LOC: ER 20:38
PROC: 0H98XZZ Drainage of Buttock Skin, External Approach (ICD-10-PCS; principal; 2019-07-05)
DX: K61.1 Rectal abscess (principal); F17.200 Nicotine dependence, unspecified, uncomplicated
CPT/HCPCS: 99283; 10060; A6266; J3490

== ENCOUNTER 2019-07-08 15:03 | Emergency (ER) | payer OTHER ==
[2019-07-08] MEDS ORDERED: ONDANSETRON HCL INJ/PF 4 MG/2 ML SDV IM ONE (15:08)
[2019-07-08] MEDS ORDERED: ONDANSETRON HCL INJ/PF 4 MG/2 ML SDV ONE (15:08)
--- NOTE | 2019-07-08 15:08 | ER Document Report ---
ED Medical Screen (RME) - General Chief Complaint: Penile Problem Stated Complaint: GROIN PAIN/GENITAL PAIN Time Seen by Provider: 07/08/19 15:07 Mode of Arrival: Ambulatory Information source: Patient Notes: 24-year-old male presented to ED for complaint of penile and scrotal pain as well as lower abdominal pain. He is actively vomiting in the pit area. He states he has been having pain off and on for the last 2 months. He states he has had an ultrasound of the scrotum which he thinks it was in June. He states today is the worst it is been. Patient is alert oriented respirations regular nonlabored. I have greeted and performed a rapid initial assessment of this patient. A comprehensive ED assessment and evaluation of the patient, analysis of test results and completion of medical decision making process will be conducted by an additional ED providers. TRAVEL OUTSIDE OF THE [place] IN LAST 30 DAYS: No - Related Data Smoking: Cigarettes - 1/2 ppd Frequency of alcohol use: None Drug Abuse: None Allergies/Adverse Reactions: No Known Allergies Allergy (Verified 07/05/19 20:43) Past Medical History Renal/ Medical History: Denies: Hx Peritoneal Dialysis GI Medical History: Reports: Hx Gastroesophageal Reflux Disease Psychiatric Medical History: Reports: Hx Depression - Immunizations Immunizations up to date: Yes Hx Diphtheria, Pertussis, Tetanus Vaccination: Yes
[2019-07-08] MEDS ORDERED: ONDANSETRON HCL INJ/PF 4 MG/2 ML SDV IV ONE ×2 (15:17→16:54)
[2019-07-08] MEDS ORDERED: KETOROLAC TROMETHAMINE INJ/PF 30 MG/1 ML SDV IV ONE ×2 (15:55→16:54)
[2019-07-08 16:13] LABS: ABSOLUTE EOSINOPHILS # (AUTO) 0.1 10^3/uL (0.0-0.6); ABSOLUTE LYMPHOCYTES (AUTO) 2.4 10^3/uL (0.5-4.7); ABSOLUTE MONOCYTES (AUTO) 0.8 10^3/uL (0.1-1.4); ABSOLUTE NEUT (AUTO) 6.1 10^3/uL (1.7-8.2); BASOPHILS % (AUTO) 0.4 % (0-2); EOSINOPHILS % (AUTO) 0.9 % (0-6); HEMATOCRIT 45.2 % (37.9-51.0); HEMOGLOBIN 15.6 g/dL (13.5-17.0); LYMPHOCYTES % (AUTO) 25.8 % (13-45); MEAN CORPUSCULAR HEMOGLOBIN 29.8 pg (27.0-33.4); MEAN CORPUSCULAR HGB CONC 34.4 g/dL (32.0-36.0); MEAN CORPUSCULAR VOLUME 87 fl (80-97); MONOCYTES % (AUTO) 8.4 % (3-13); PLATELET COUNT 357 10^3/uL (150-450); RED BLOOD COUNT 5.22 10^6/uL (4.35-5.55); RED CELL DISTRIBUTION WIDTH 12.5 % (11.5-14.0); SEGMENTED NEUTROPHILS % (AUTO) 64.5 % (42-78); TOTAL CELLS COUNTED % (AUTO) 100 %; WHITE BLOOD COUNT 9.4 10^3/uL (4.0-10.5)
[2019-07-08] MEDS: NORMAL SALINE 1000 ML 1,000 ML IV PRN ×2 (16:16→17:11)
--- NOTE | 2019-07-08 16:26 | RADIOLOGY REPORT (SQ) ---
EXAM DESCRIPTION: CT ABD/PELVIS NO ORAL OR IV COMPLETED DATE/TIME: 07/08/2019 4:12 pm REASON FOR STUDY: eval for renal stone COMPARISON: CT urolithiasis 08/24/2015 TECHNIQUE: CT scan of the abdomen and pelvis performed without intravenous or oral contrast. Images reviewed with lung, soft tissue, and bone windows. Reconstructed coronal and sagittal MPR images revi ewed. All images stored on PACS. All CT scanners at this facility use dose modulation, iterative reconstruction, and/or weight based d osing when appropriate to reduce radiation dose to as low as reasonably achievable (ALARA). [facility]: Dose Right [facility]: CareDose [facility]: Dose Right [facility]: Teradose 4D [facility]: Positron RADIATION DOSE: CT Rad equipment meets quality standard of care and radiation dose reduction techniq ues were employed. CTDIvol: 7.2 mGy. DLP: 387 mGy-cm.mGy. LIMITATIONS: None. FINDINGS: LOWER CHEST: No significant findings. No nodules or infiltrates. NON-CONTRASTED LIVER, SPLEEN, ADRENALS: Evaluation limited by lack of IV contrast. No identified sign ificant masses. PANCREAS: No masses. No peripancreatic inflammatory changes. GALLBLADDER: No identified stones by CT criteria. No inflammatory changes to suggest cholecystitis. RIGHT KIDNEY AND URETER: No suspicious masses. Assessment limited by lack of IV contrast. No signif icant calcifications. No hydronephrosis or hydroureter. LEFT KIDNEY AND URETER: No suspicious masses. Assessment limited by lack of IV contrast. No signifi cant calcifications. No hydronephrosis or hydroureter. AORTA AND RETROPERITONEUM: No aneurysm. No retroperitoneal masses or adenopathy. BOWEL AND PERITONEAL CAVITY: No obvious masses or inflammatory changes. No free fluid. APPENDIX: Normal. PELVIS, BLADDER, AND ABDOMINAL WALL:No abnormal masses. No free fluid. Bladder normal. BONES: No significant findings. OTHER: No other significant finding. IMPRESSION: NO SIGNIFICANT OR ACUTE PROCESS IN THE ABDOMEN OR PELVIS. COMMENT: Quality ID # [id number]: Final reports with documentation of one or more dose reduction techniques (e.g., Automated exposure control, adjustment of the mA and/or kV according to patient size, use of iterative reconstruction technique) TECHNICAL DOCUMENTATION: JOB ID: [id number]- All Rights Reserved Reading location - IP[facility]workstation name: [email or web address]
[2019-07-08 16:44] LABS: APPEARANCE,URINE CLEAR; BILIRUBIN,URINE NEGATIVE (NEGATIVE); COLOR,URINE YELLOW; GLUCOSE, URINE NEGATIVE (NEGATIVE); KETONES,URINE NEGATIVE (NEGATIVE); PROTEIN,URINE 30 mg/dL (NEGATIVE); URINE SPECIFIC GRAVITY 1.026; UROBILINOGEN,URINE NEGATIVE mg/dL (<2.0)
[2019-07-08 16:52] LABS: URINE AMPHETAMINES SCREEN NEGATIVE; URINE BARBITURATES SCREEN NEGATIVE; URINE BENZODIAZEPINES SCREEN NEGATIVE; URINE COCAINE SCREEN NEGATIVE; URINE MARIJUANA (THC) SCREEN UNCONFIRMED POSITIVE; URINE METHADONE SCREEN NEGATIVE; URINE PHENCYCLIDINE SCREEN NEGATIVE
[2019-07-08 17:15] LABS: ALBUMIN 4.9 g/dL (3.5-5.0); ALKALINE PHOSPHATASE 76 U/L (38-126); ANION GAP 12 (5-19); ASPARTATE AMINO TRANSFERASE 25 U/L (17-59); BILIRUBIN,DIRECT 0.1 mg/dL (0.0-0.4); BILIRUBIN,TOTAL 0.4 mg/dL (0.2-1.3); BLOOD UREA NITROGEN 17 mg/dL (7-20); CALCIUM 10.3 mg/dL (8.4-10.2); CARBON DIOXIDE 25 mmol/L (22-30); CHLORIDE 104 mmol/L (98-107); GLUCOSE 94 mg/dL (75-110); POTASSIUM 4.2 mmol/L (3.6-5.0); TOTAL PROTEIN 8.2 g/dL (6.3-8.2)
--- NOTE | 2019-07-08 19:14 | ER Document Report ---
ED GI/ - General Chief Complaint: Groin Pain Stated Complaint: GROIN PAIN/GENITAL PAIN Time Seen by Provider: 07/08/19 15:07 Primary Care Provider: REBECCA BENEDICT MD [NO LOCAL MD] - Follow up as needed Mode of Arrival: Ambulatory Notes: 24-year-old male presented to ED for complaint of penile and scrotal pain as well as lower abdominal pain. He is actively vomiting in the pit area. He sta hermelinda he has been having pain off and on for the last 2 months. He states he has had an ultrasound of the scrotum which he thinks it was in June. He states today is the worst it is been. Patient denies any fevers or diarrhea. Denies any penile discharge or dysuria. TRAVEL OUTSIDE OF THE [place] IN LAST 30 DAYS: No - Related Data Allergies/Adverse Reactions: No Known Allergies Allergy (Verified 07/05/19 20:43) Past Medical History - General Information source: Patient - Social History Smoking Status: Current Every Day Smoker Frequency of alcohol use: None Drug Abuse: None Family History: Reviewed & Not Pertinent Patient has suicidal ideation: No Patient has homicidal ideation: No Renal/ Medical History: Denies: Hx Peritoneal Dialysis GI Medical History: Reports: Hx Gastroesophageal Reflux Disease Psychiatric Medical History: Reports: Hx Depression - Immunizations Immunizations up to date: Yes Hx Diphtheria, Pertussis, Tetanus Vaccination: Yes Review of Systems - Review of Systems Constitutional: No symptoms reported EENT: No symptoms reported Cardiovascular: No symptoms reported Respiratory: No symptoms reported Gastrointestinal: See HPI Genitourinary: No symptoms reported Male Genitourinary: See HPI Musculoskeletal: No symptoms reported Skin: No symptoms reported Hematologic/Lymphatic: No symptoms reported Neurological/Psychological: No symptoms reported Physical Exam - Vital signs Vitals: Temp Pulse Resp BP Pulse Ox 98.3 F 78 14 127/71 H 98 07/08/19 19:32 07/08/19 19:32 07/08/19 19:32 07/08/19 19:32 07/08/19 19:32 - Notes Notes: PHYSICAL EXAMINATION: GENERAL: Well-appearing, well-nourished and in no acute distress. HEAD: Atraumatic, normocephalic. EYES: Pupils equal round and reactive to light, extraocular movements intact, sclera anicteric, conjunctiva are normal. ENT: Nares patent, oropharynx clear without exudates. Moist mucous membranes. NECK: Normal range of motion, supple without lymphadenopathy LUNGS: Breath sounds clear to auscultation bilaterally and equal. No wheezes rales or rhonchi. HEART: Regular rate and rhythm without murmurs ABDOMEN: Soft, mildly tender, nondistended abdomen. No guarding, no rebound. No masses appreciated. Genitourinary: Mild erythema noted over the shaft of the penis in the head of the penis, no rashes or lesions noted, no obvious scrotal swelling or edema or erythema. Musculoskeletal: Normal range of motion, no pitting or edema. No cyanosis. NEUROLOGICAL: Cranial nerves grossly intact. Normal speech, normal gait. Normal sensory, motor exams PSYCH: Normal mood, normal affect. SKIN: Warm, Dry, normal turgor, no rashes or lesions noted. Course - Re-evaluation Re-evalutation: Laboratory 07/08/19 07/08/19 07/08/19 15:56 15:56 15:58 WBC 9.4 RBC 5.22 Hgb 15.6 Hct 45.2 MCV 87 MCH 29.8 MCHC 34.4 RDW 12.5 Plt Count 357 Lymph % (Auto) 25.8 Garland % (Auto) 8.4 Eos % (Auto) 0.9 Baso % (Auto) 0.4 Absolute Neuts (auto) 6.1 Absolute Lymphs (auto) 2.4 Absolute Monos (auto) 0.8 Absolute Eos (auto) 0.1 Absolute Basos (auto) 0.0 Seg Neutrophils % 64.5 Sodium Cancelled Potassium Cancelled Chloride Cancelled Carbon Dioxide Cancelled Anion Gap Cancelled BUN Cancelled Creatinine Cancelled Est GFR ( Amer) Cancelled Est GFR (Non-Af Amer) Cancelled Est GFR (MDRD) Non-Af Cancelled Glucose Cancelled Calcium Cancelled Total Bilirubin Cancelled Direct Bilirubin Cancelled Neonat Total Bilirubin Cancelled Neonat Direct Bilirubin Cancelled Neonat Indirect Bili Cancelled AST Cancelled ALT Cancelled Alkaline Phosphatase Cancelled Total Protein Cancelled Albumin Cancelled Lipase Cancelled EGFR Cancelled Urine Color YELLOW Urine Appearance CLEAR Urine pH 7.0 Ur Specific [place] 1.026 Urine Protein 30 H Urine Glucose (UA) NEGATIVE Urine Ketones NEGATIVE Urine Blood NEGATIVE Urine Nitrite (Reflex) NEGATIVE Urine Bilirubin NEGATIVE Urine Urobilinogen NEGATIVE Leukocyte Esterase Rfl NEGATIVE Urine RBC (Auto) 5 Urine WBC (Reflex) 1 Urine Mucus (Auto) OCC Urine Ascorbic Acid NEGATIVE Urine Opiates Screen Urine Methadone Screen Ur Barbiturates Screen Ur Phencyclidine Scrn Ur Amphetamines Screen U Benzodiazepines Scrn Urine Cocaine Screen U Marijuana (THC) Screen 07/08/19 07/08/19 15:58 16:45 WBC RBC Hgb Hct MCV MCH MCHC RDW Plt Count Lymph % (Auto) Gar[place] % (Auto) Eos % (Auto) Baso % (Auto) Absolute Neuts (auto) Absolute Lymphs (auto) Absolute Monos (auto) Absolute Eos (auto) Absolute Basos (auto) Seg Neutrophils % Sodium 141.4 Potassium 4.2 Chloride 104 Carbon Dioxide 25 Anion Gap 12 BUN 17 Creatinine 1.06 Est GFR ( Amer) > 60 Est GFR (Non-Af Amer) Est GFR (MDRD) Non-Af > 60 Glucose 94 Calcium 10.3 H Total Bilirubin 0.4 Direct Bilirubin 0.1 Neonat Total Bilirubin Not Reportable Neonat Direct Bilirubin Not Reportable Neonat Indirect Bili Not Reportable AST 25 ALT 29 Alkaline Phosphatase 76 Total Protein 8.2 Albumin 4.9 Lipase 46.1 EGFR Urine Color Urine Appearance Urine pH Ur Specific [place] Urine Protein Urine Glucose (UA) Urine Ketones Urine Blood Urine Nitrite (Reflex) Urine Bilirubin Urine Urobilinogen Leukocyte Esterase Rfl Urine RBC (Auto) Urine WBC (Reflex) Urine Mucus (Auto) Urine Ascorbic Acid Urine Opiates Screen UNCONFIRMED POSITIVE Urine Methadone Screen NEGATIVE Ur Barbiturates Screen NEGATIVE Ur Phencyclidine Scrn NEGATIVE Ur Amphetamines Screen NEGATIVE U Benzodiazepines Scrn NEGATIVE Urine Cocaine Screen NEGATIVE U Marijuana (THC) Screen UNCONFIRMED POSITIVE Abdomen/Pelvis CT 07/08/19 15:26 IMPRESSION: NO SIGNIFICANT OR ACUTE PROCESS IN THE ABDOMEN OR PELVIS. - Vital Signs Vital signs: Temp Pulse Resp BP Pulse Ox 98.3 F 78 14 127/71 H 98 07/08/19 19:32 07/08/19 19:32 07/08/19 19:32 07/08/19 19:32 07/08/19 19:32 - Laboratory Result Diagrams: 07/08/19 15:56 07/08/19 16:45 Laboratory results interpreted by me: 07/08/19 07/08/19 15:58 16:45 Calcium 10.3 H Urine Protein 30 H Discharge - Discharge Clinical Impression: Lower abdominal pain Groin pain Qualifiers: Laterality: right Qualified Code(s): R10.31 - Right lower quadrant pain Condition: Stable Disposition: HOME, SELF-CARE Additional Instructions: You were seen in the emergency department for lower abdominal pain and groin pain. Fortunately your work-up was unremarkable today. I will start you on some doxycycline until you see urology. Please call them tomorrow to schedule appointment, let them know you have been seen in the emergency department multiple times for groin pain, penile pain and lower abdominal pain and have normal work-ups. Take the pain and nausea medication as prescribed. Take ibuprofen 600 mg every 6 hours as well. Prescriptions: Doxycycline Hyclate 100 mg PO BID #14 capsule Hydrocodone/Acetaminophen [Obion 5-325 mg Tablet] 1 tab PO Q4H #10 tablet Ondansetron [Zofran Odt 4 mg Tablet] 1 - 2 tab PO Q4H PRN #15 tab.rapdis PRN Reason: For Nausea/Vomiting Referrals: REBECCA BENEDICT MD [NO LOCAL MD] - Follow up as needed
[2019-07-08 19:33] VITALS: BP 127/71
== END 2019-07-08 19:33 | disposition home or self-care (01) ==
LOC: ER 15:03
DX: R10.31 Right lower quadrant pain (principal); N48.89 Other specified disorders of penis; N50.82 Scrotal pain; F17.200 Nicotine dependence, unspecified, uncomplicated
CPT/HCPCS: 96376; 99284; 96372; 96361; 96374; 96375; 36415; 83690; 85025; 80053; 81001; 80307; 74176; J1885; J2405; J7030

== ENCOUNTER 2019-12-13 16:46 | Emergency (ER) | payer SELFPAY ==
[2019-12-13 16:52] VITALS: BP 128/85
--- NOTE | 2019-12-13 17:03 | ER Document Report ---
HPI - HPI Time Seen by Provider: 12/13/19 16:58 Notes: 24-year-old male presents emergency room with complaints of lower left dental pain that started approximately 1 week ago. Patient does smoke half pack a day for the last 8 years or so. Unable to get into a dentist. Noted some purulent drainage from his left floor molar. Pain is 3 out of 10, achy throbbing. Has not tried any [id number] ibuprofen or Tylenol for pain control. Eating and drink without any issues. Denies fevers, chills, chest pain,palpitations, shortness of breath, dyspnea, nausea, vomiting, diarrhea, abdominal pain, hematuria,blurred vision, double vision, loss of vision, speech changes, LH, dizziness, syncope, headaches, wheezing, ST, URI, neck pain, weakness, bowel or bladder dysfunction, saddle anesthesia, numbness or tingling in bilateral upper or lower extremities equally, muscle paralysis, weakness in bilateral upper or lower extremities equally or rash. - REPRODUCTIVE Reproductive: DENIES: : Past Medical History - General Information source: Patient - Social History Smoking Status: Current Every Day Smoker Family History: Reviewed & Not Pertinent Renal/ Medical History: Denies: Hx Peritoneal Dialysis GI Medical History: Reports: Hx Gastroesophageal Reflux Disease Psychiatric Medical History: Reports: Hx Depression - Immunizations Immunizations up to date: Yes Hx Diphtheria, Pertussis, Tetanus Vaccination: Yes Vertical Provider Document - CONSTITUTIONAL Agree With Documented VS: Yes Exam Limitations: No Limitations General Appearance: WD/WN Notes: PHYSICAL EXAMINATION:reviewed vital signs by RN GENERAL: Well-appearing, well-nourished and in no acute distress. HEAD: Atraumatic, normocephalic. EYES: Pupils equal round and reactive to light, extraocular movements intact, sclera anicteric, conjunctiva are normal. ENT: Nares patent, oropharynx clear without exudates. Moist mucous membranes. . #17 gingiva with swelling, erythema and induration. No drainage or open wounds. No fluctuance. No facial swelling. Poor oral dentition, left lower jaw with mild dental caries, no definite swelling or effusion. no trismus noted. Uvula is midline NECK: Normal range of motion, supple without lymphadenopathy LUNGS: Breath sounds clear to auscultation bilaterally and equal. No wheezes rales or rhonchi. HEART: Regular rate and rhythm without murmurs ABDOMEN: Soft, nontender, nondistended abdomen. No guarding, no rebound. No masses appreciated. Musculoskeletal: Normal range of motion, no pitting or edema. No cyanosis. NEUROLOGICAL: Cranial nerves grossly intact. Normal speech, normal gait. Normal sensory, motor exams PSYCH: Normal mood, normal affect. SKIN: Warm, Dry, normal turgor, no rashes or lesions noted. - INFECTION CONTROL TRAVEL OUTSIDE OF THE [place] IN LAST 30 DAYS: No Course - Re-evaluation Re-evalutation: 12/13/19 17:04 Afebrile vital stable no distress. Nurses notes reviewed. Will start on clindamycin as directed. Avoid smoking. Soft diet is recommended. After performing a Medical Screening Examination, I estimate there is LOW risk for a DEEP SPACE INFECTION (e.g., MAX'S ANGINA OR RETROPHARYNGEAL ABSCESS), MENINGITIS, INTRACRANIAL HEMORRHAGE, or AIRWAY COMPROMISE, thus I consider the discharge disposition reasonable. Also, there is no evidence or peritonitis, s epsis, or toxicity. I have reevaluated this patient multiple times and no significant life threatening changes are noted. The patient and I have discussed the diagnosis and risks, and we agree with discharging home with close follow-up with the understanding that symptoms and presentations can change. We also discussed returning to the Emergency Department immediately if new or worsening symptoms occur. We have discussed the symptoms which are most concerning (e.g., changing or worsening pain, trouble swallowing or breathing, neck stiffness or fever) that necessitate immediate return. - Vital Signs Vital signs: Temp Pulse Resp BP Pulse Ox 97.8 F 77 14 128/85 H 99 12/13/19 16:49 12/13/19 16:49 12/13/19 16:49 12/13/19 16:49 12/13/19 16:49 Discharge - Discharge Clinical Impression: Dental caries Condition: Stable Disposition: HOME, SELF-CARE Instructions: Clindamycin ([facility]), Toothache ([facility]), [facility], Dentist Additional Instructions: Return immediately for any new or worsening symptoms. Follow up with primary care provider, call tomorrow to make followup appointment. Prescriptions: Clindamycin HCl 300 mg PO Q6H #28 capsule Forms: Return to Work Referrals: VIVIAN LAWSON MD [COMMUNITY BASED STAFF] - Follow up as needed
== END 2019-12-13 17:09 | disposition home or self-care (01) ==
LOC: ER 16:46
DX: K02.9 Dental caries, unspecified (principal); K08.89 Other specified disorders of teeth and supporting structures; F17.200 Nicotine dependence, unspecified, uncomplicated
CPT/HCPCS: 99282

== ENCOUNTER 2020-01-09 14:32 | Emergency (ER) | payer SELFPAY ==
[2020-01-09 14:36] VITALS: BP 134/80
--- NOTE | 2020-01-09 14:55 | ER Document Report ---
ED Medical Screen (RME) - General Chief Complaint: STD Exposure Stated Complaint: EXPOSURE STD Time Seen by Provider: 01/09/20 14:48 Mode of Arrival: Ambulatory Information source: Patient Notes: HPI; 4-year-old male no previous medical problems presents to the emergency room complaining of dysuria and penile discharge for the past 2 days. Denies any known STD exposure. States has had multiple partners but does wear a condom. Also complaining of a rash lesion on his penis that he noticed this morning. No history of any previous STDs. PE: Alert and oriented x3. Lungs clear to auscultation without rales rhonchi wheezes. Heart regular rate rhythm without murmurs rubs or gallops. I have greeted and performed a rapid initial assessment of this patient. A comprehensive ED assessment and evaluation of the patient, analysis of test results and completion of the medical decision making process will be conducted by additional ED providers. I have specifically instructed the patient or family members with the patient to immediately return to any nursing staff should anything change in the patient's condition or with their chief complaint. TRAVEL OUTSIDE OF THE [place] IN LAST 30 DAYS: No - Related Data Allergies/Adverse Reactions: No Known Allergies Allergy (Verified 01/09/20 14:48) Home Medications: Omeprazole Past Medical History - Social History Chew tobacco use (# tins/day): No Frequency of alcohol use: None Drug Abuse: Marijuana Renal/ Medical History: Denies: Hx Peritoneal Dialysis GI Medical History: Reports: Hx Gastroesophageal Reflux Disease Psychiatric Medical History: Reports: Hx Depression Past Surgical History: Reports: Hx Abdominal Surgery - infant hernia repair - Immunizations Immunizations up to date: Yes Hx Diphtheria, Pertussis, Tetanus Vaccination: Yes Physical Exam - Vital signs Vitals: Temp Pulse Resp BP Pulse Ox 99.4 F 97 18 134/80 H 97 01/09/20 14:36 01/09/20 14:36 01/09/20 14:36 01/09/20 14:36 01/09/20 14:36 Course - Vital Signs Vital signs: Temp Pulse Resp BP Pulse Ox 99.4 F 97 18 134/80 H 97 01/09/20 14:49 01/09/20 14:36 01/09/20 14:36 01/09/20 14:36 01/09/20 14:36
[2020-01-09 15:25] LABS: APPEARANCE,URINE SLIGHTLY-CLOUDY; BILIRUBIN,URINE NEGATIVE (NEGATIVE); COLOR,URINE YELLOW; GLUCOSE, URINE NEGATIVE (NEGATIVE); KETONES,URINE NEGATIVE (NEGATIVE); LEUKOCYTE ESTERASE,URINE NEGATIVE (NEGATIVE); NITRITE,URINE NEGATIVE (NEGATIVE); PROTEIN,URINE 30 mg/dL (NEGATIVE); URINE SPECIFIC GRAVITY 1.027
[2020-01-09] MEDS ORDERED: AZITHROMYCIN 250 MG TABLET PO ONE (16:31)
[2020-01-09] MEDS ORDERED: CEFTRIAXONE INJ 250 MG VIAL IM ONE (16:31)
[2020-01-09] MEDS ORDERED: LIDOCAINE 1% INJ (10 MG/ML) 10 ML MDV INJ ONE (16:32)
--- NOTE | 2020-01-09 16:35 | ER Document Report ---
HPI - HPI Time Seen by Provider: 01/09/20 14:48 Pain Level: Denies - REPRODUCTIVE Reproductive: DENIES: : Past Medical History - General Information source: Patient - Social History Smoking Status: Current Every Day Smoker Chew tobacco use (# tins/day): No Frequency of alcohol use: None Drug Abuse: Marijuana Family History: Reviewed & Not Pertinent Patient has homicidal ideation: No Renal/ Medical History: Denies: Hx Peritoneal Dialysis GI Medical History: Reports: Hx Gastroesophageal Reflux Disease Psychiatric Medical History: Reports: Hx Depression Past Surgical History: Reports: Hx Abdominal Surgery - hernia repair - Immunizations Immunizations up to date: Yes Hx Diphtheria, Pertussis, Tetanus Vaccination: Yes Vertical Provider Document - CONSTITUTIONAL Agree With Documented VS: Yes Exam Limitations: No Limitations General Appearance: WD/WN, No Apparent Distress - INFECTION CONTROL TRAVEL OUTSIDE OF THE [place] IN LAST 30 DAYS: No - HEENT HEENT: Atraumatic, Normocephalic - NECK Neck: Normal Inspection, Supple. negative: Lymphadenopathy-Left, Lymphadenopathy-Right - RESPIRATORY Respiratory: Breath Sounds Normal, No Respiratory Distress - CARDIOVASCULAR Cardiovascular: Regular Rate, Regular Rhythm - GI/ABDOMEN Gastrointestinal: Abdomen Soft, Abdomen Non-Tender, No Organomegaly - REPRODUCTIVE Male Genitalia: Normal Inspection Notes: No obvious skin lesion, new urethral drainage, no inguinal lymphadenopathy or tenderness, no testicular tenderness. Normal cremasteric reflex - MUSCULOSKELETAL/EXTREMETIES Musculoskeletal/Extremeties: MAEW, FROM - NEURO Level of Consciousness: Awake, Alert, Appropriate Motor/Sensory: No Motor Deficit - DERM Integumentary: Warm, Dry Course - Re-evaluation Re-evalutation: 01/09/20 16:32 Patient with concern about possible STD, patient does report recent new sexual partner last month. Gonorrhea chlamydia test is still pending at this time, will treat empirically while cultures pending at this time. No inguinal tenderness or masses, no concern for testicular torsion or hernia at this time. - Vital Signs Vital signs: Temp Pulse Resp BP Pulse Ox 99.4 F 97 18 134/80 H 97 01/09/20 14:49 01/09/20 14:36 01/09/20 14:36 01/09/20 14:36 01/09/20 14:36 - Laboratory Laboratory results interpreted by me: 01/09/20 15:00 Urine Protein 30 H Urine Urobilinogen 4.0 H Discharge - Discharge Clinical Impression: Concern about STD in male without diagnosis Condition: Stable Disposition: HOME, SELF-CARE Instructions: Azithromycin ([facility]), Rocephin ([facility]) Additional Instructions: Return immediately for any new or worsening symptoms Followup with your primary care provider, call tomorrow to make a followup appointment Cultures are pending, we will call if you need any different treatment [facility]: [facility] [NO LOCAL MD] - Follow up as needed
[2020-01-09 16:59] LABS: CHLAM PCR DETECTED (NOT DETECT)
== END 2020-01-09 17:03 | disposition home or self-care (01) ==
LOC: ER 14:32
DX: Z20.2 Contact with and (suspected) exposure to infections with a predominantly sexual mode of transmission (principal); R21 Rash and other nonspecific skin eruption; F17.200 Nicotine dependence, unspecified, uncomplicated
CPT/HCPCS: 99283; 96372; 81001; 87491; 87591; J0696